=== PATIENT | female | born 1960 | race Caucasian/White ===

== ENCOUNTER 2019-11-28 18:16 | Emergency (ER) | payer MEDICARE, OTHER ==
[2019-11-28 18:27] VITALS: BP 139/76; PULSE 89
--- NOTE | 2019-11-28 19:24 | EDM.PDOC ---
ED HPI GENERAL MEDICAL PROBLEM - General Chief Complaint: Gastrointestinal Problem Stated Complaint: RECTAL BLEEDING Time Seen by Provider: 11/28/19 19:15 Source of Information: Reports: Patient History Limitations: Reports: No Limitations - History of Present Illness INITIAL COMMENTS - FREE TEXT/NARRATIVE: Patient is a 59 y/o female who presents with rectal bleeding and clotting x 3 days. She has a PMHx significant for hemorrhoids and constipation. Patient admits to drinking and taking methamphetamines, which has made her constipation worse. She denies any rectal pain, itching, or bloody stool. Patient has struggled with constipation for a long time. - Related Data Allergies Allergy/AdvReac Type Severity Reaction Status Date / Time olanzapine [From Zyprexa] Allergy Edema Verified 11/28/19 18:26 Past Medical History Other Cardiovascular History: EDEMA Other Gastrointestinal History: hEMMOROIDS Psychiatric History: Reports: Addiction, Anxiety, Schizophrenia Social & Family History - Tobacco Use Years of Tobacco use: 40 Packs/Tins Daily: 1 - Caffeine Use Caffeine Use: Reports: Coffee, Soda - Recreational Drug Use Recreational Drug Use: Yes Recreational Drug Type: Reports: Methamphetamine ED ROS GENERAL - Review of Systems Review Of Systems: Comprehensive ROS is negative, except as noted in HPI. ED EXAM, GI/ABD - Physical Exam Exam: See Below Exam Limited By: No Limitations General Appearance: Alert, No Apparent Distress GI/Abdominal Exam: Normal Bowel Sounds, Soft, Non-Tender, No Distention, No Mass Rectal (Female) Exam: Normal Rectal Tone, Hemorrhoids (one, non-tender external hemorrhoid; no anal fissue; no obvious bleeding on exam) Course - Vital Signs Last Recorded V/S: Last Vital Signs Temp 36.6 C 11/28/19 18:26 Pulse 89 11/28/19 18:26 Resp 18 11/28/19 18:26 BP 139/76 11/28/19 18:26 Pulse Ox 99 11/28/19 18:26 - Orders/Labs/Meds Orders: Active Orders 24 hr Category Date Time Status COMPREHENSIVE METABOLIC PN,CMP [CHEM] Stat Lab 11/28/19 18:52 Ordered Labs: Laboratory Tests 11/28/19 Range/Units 19:00 WBC 9.1 (4.0-11.0) K/uL RBC 4.55 (3.80-5.80) M/uL Hgb 14.4 (11.5-16.5) g/dL Hct 43.5 (37.0-47.0) % MCV 96 (76-96) fL MCH 31.6 (27.0-32.0) pg MCHC 33.1 (31.0-35.0) g/dL RDW 12.6 (11.0-16.0) % Plt Count 298 (150-500) K/uL MPV 9.1 (6.0-10.0) fL Neut % (Auto) 64.5 (45.0-70.0) % Lymph % (Auto) 25.5 (20.0-40.0) % [place] % (Auto) 6.5 (3.0-10.0) % Eos % (Auto) 2.8 (1.0-5.0) % Baso % (Auto) 0.7 H (0.0-0.5) % Neut # (Auto) 5.87 (2.00-7.50) K/uL Lymph # (Auto) 2.32 (1.50-4.00) K/uL [place] # (Auto) 0.59 (0.20-0.80) K/uL Eos # (Auto) 0.25 (0.04-0.40) K/uL Baso # (Auto) 0.06 (0.02-0.10) K/uL Departure - Departure Time of Disposition: 19:20 Disposition: Eloped 07 Condition: Good Clinical Impression: Constipation Qualifiers: Constipation type: chronic idiopathic constipation Qualified Code(s): K59.04 - Chronic idiopathic constipation - Discharge Information *PRESCRIPTION DRUG MONITORING PROGRAM REVIEWED*: Not Applicable *COPY OF PRESCRIPTION DRUG MONITORING REPORT IN PATIENT BRIA: Not Applicable Instructions: Constipation, Adult, [id number] Referrals: PCP,None [Primary Care Provider] - Forms: ED Department Discharge Sepsis Event Note (ED) - Evaluation Sepsis Screening Result: No Definite Risk - Focused Exam Vital Signs: Vital Signs Temp Pulse Resp BP Pulse Ox 11/28/19 18:26 36.6 C 89 18 139/76 99 - My Orders Last 24 Hours: My Active Orders 11/28/19 18:52 COMPREHENSIVE METABOLIC PN,CMP [CHEM] Stat - Assessment/Plan Last 24 Hours: My Active Orders 11/28/19 18:52 COMPREHENSIVE METABOLIC PN,CMP [CHEM] Stat Plan: Solo labs to check for anemia. Patient didn't want to wait for her labs and refusing colace prescription. Educated patient to quit drinking and quit drugs. More fluid intake and fibers in her diet. Follow up with GI doctor. Return to the ED for fever >102, unable to tolerate fluids, difficulty breathing/swallowing, and/or persistent/worsening symptoms.
== END 2019-11-28 19:20 | disposition left against medical advice (07) ==
LOC: LB.ED 18:16
DX: K59.04 Chronic idiopathic constipation (principal); K64.4 Residual hemorrhoidal skin tags; F17.210 Nicotine dependence, cigarettes, uncomplicated; Z88.8 Allergy status to other drugs, medicaments and biological substances
CPT/HCPCS: 36415; 80053; 85025; 99283